=== PATIENT | male | born 1975 | race Caucasian/White ===

== ENCOUNTER 2017-02-02 15:35 | Emergency (ER) | payer MEDICARE ==
[~2017-02-02] VITALS: Ht 190.5 cm; Wt 116.6 kg
[~2017-02-02 15:35] MED LIST: CIPR500T87 PO; CLON0.12 PO; INSU100V5 SQ-INSULIN; LOSA25TA5 PO; OXYC-302 PO
[2017-02-02] MEDS ORDERED: SODIUM CHLORIDE FLUSH 10ML SYR IVF ONE (16:00)
[2017-02-02] MEDS ORDERED: SODIUM CHLORIDE 0.9% 1,000ML IVBOLUS ONE (16:00)
[2017-02-02 16:10] LABS: PH, VENOUS 7.417 pH (7.320-7.420)
[2017-02-02 16:11] LABS: HEMATOCRIT 50.1 % (39.2-51.8); HEMOGLOBIN 16.9 g/dL (13.7-18.0); WHITE BLOOD COUNT 10.1 x10^3/uL (3.4-10)
[2017-02-02 16:23] LABS: ASPARTATE AMINO TRANSFERASE 21 U/L (15-37); BLOOD UREA NITROGEN 11 mg/dL (7-18)
[2017-02-02] MEDS ORDERED: INSULIN REGULAR 100 UNITS/ML, 3ML VIAL IVPush ONE (17:00)
[2017-02-02] MEDS ORDERED: SODIUM CHLORIDE 0.9%, 500ML IVBOLUS ONE (17:00)
[2017-02-02] MEDS ORDERED: INSULIN REGULAR 100 UNITS/ML, 3ML VIAL SQ-INSULIN ONE (17:00)
[2017-02-02] MEDS ORDERED: INSULIN REGULAR 100 UNITS/ML, 3ML VIAL ONE (17:25)
[2017-02-02 17:27] VITALS: BP 142/88
== END 2017-02-02 20:26 | disposition home or self-care (01) ==
LOC: ED 18:20
DX: E11.65 Type 2 diabetes mellitus with hyperglycemia (principal); J20.8 Acute bronchitis due to other specified organisms; B96.89 Other specified bacterial agents as the cause of diseases classified elsewhere; Z79.4 Long term (current) use of insulin
CPT/HCPCS: 36415; 80053; 81003; 82010; 82803; 82962; 85025; 96361; 96372; 96374; 99285; J7030

== ENCOUNTER → 2017-12-27 | Outpatient (CLI) | payer MEDICARE, MEDICAID ==
[~2017-12-27] MED LIST changes: -LOSA25TA5 PO; +LOSA25TA6 PO
== END | disposition home or self-care (01) ==
LOC: CFH 13:14
PROVIDERS: ATTEND Nurse Practitioner
DX: M19.011 Primary osteoarthritis, right shoulder (principal); M75.101 Unspecified rotator cuff tear or rupture of right shoulder, not specified as traumatic

== ENCOUNTER 2018-05-30 05:13 | Day surgery (SDC) | payer MEDICARE, MEDICAID ==
[~2018-05-30] VITALS: Ht 190.5 cm; Wt 114.9 kg
[~2018-05-30 05:13] MED LIST changes: +LOSA25TA25 PO; -LOSA25TA6 PO
[2018-05-30] MEDS ORDERED: LIDOCAINE 1%-EPI 1:100K, 30ML ONE (06:11)
[2018-05-30] MEDS ORDERED: LACTATED RINGERS 1,000 ML IV SCH (06:12)
[2018-05-30 06:18] VITALS: BP 128/92
[2018-05-30] MEDS ORDERED: LOSA100T14 PO (06:18)
[2018-05-30] MEDS ORDERED: ASCO500T8 PO (06:18)
[2018-05-30] MEDS ORDERED: ESCI10TA PO (06:18)
[2018-05-30] MEDS ORDERED: MIDAZOLAM 1 MG/ML, 2ML ONE (06:18)
[2018-05-30] MEDS ORDERED: INSU300I SQ-INSULIN (06:18)
[2018-05-30] MEDS ORDERED: OMEP-110 PO (06:18)
[2018-05-30] MEDS ORDERED: ASPI-496 PO (06:18)
[2018-05-30] MEDS ORDERED: CLON0.5T11 PO (06:18)
[2018-05-30] MEDS ORDERED: INSU100C5 SQ-INSULIN (06:18)
[2018-05-30] MEDS ORDERED: FENTANYL PF 250 MCG/5ML ONE (06:19)
[2018-05-30] MEDS ORDERED: EPINEPHRINE TOPICAL SOLN 1 MG/ML, 30ML ONE (06:28)
[2018-05-30] MEDS ORDERED: MEPERIDINE/PF 25MG/0.5ML IVPush PRN (07:00)
[2018-05-30] MEDS ORDERED: PROMETHAZINE 25 MG/ML, 1ML IV PRN (07:00)
[2018-05-30] MEDS ORDERED: OXYcodone 5 MG/5 ML ORAL.SOL UDC PO PRN (07:00)
[2018-05-30] MEDS ORDERED: PROMETHAZINE 12.5 MG SUPP PR PRN (07:00)
[2018-05-30] MEDS ORDERED: PROMETHAZINE 25 MG/ML, 1ML IM PRN ×2 (07:00)
[2018-05-30] MEDS ORDERED: FENTANYL PF 100 MCG/2ML IV PRN (07:00)
[2018-05-30] MEDS ORDERED: ONDANSETRON 2MG/ML, 2ML IV PRN (07:00)
[2018-05-30] MEDS ORDERED: LABETALOL 5MG/ML, 20ML IV PRN (07:00)
[2018-05-30] MEDS ORDERED: PROMETHAZINE 25 MG SUPP PR PRN (07:00)
[2018-05-30] MEDS ORDERED: MORPHINE SULFATE 4 MG/ML, 1ML IVPush PRN (07:00)
[2018-05-30] MEDS ORDERED: hydrALAzine 20 MG/ML, 1ML IV PRN (07:00)
[2018-05-30] MEDS ORDERED: HYDROmorphone 2 MG/ML, 1ML IVPush PRN (07:00)
[2018-05-30] MEDS ORDERED: ONDANSETRON ODT 8 MG PO PRN (07:00)
[2018-05-30] MEDS ORDERED: ACETAMINOPHEN 325 MG TABLET PO PRN (07:00)
[2018-05-30] MEDS ORDERED: NEOSTIGMINE 1 MG/ML, 10ML ONE (07:02)
[2018-05-30] MEDS ORDERED: ROCURONIUM 10 MG/ML,10ML ONE (07:02)
[2018-05-30] MEDS ORDERED: CEFAZOLIN 1,000 MG ONE (07:02)
[2018-05-30] MEDS ORDERED: PROPOFOL 10 MG/ML, 20ML ONE (07:02)
[2018-05-30] MEDS ORDERED: PHENYLEPHRINE 10 MG/ML ONE (07:02)
[2018-05-30] MEDS ORDERED: GLYCOPYRROLATE 0.2MG/1ML, 5ML ONE (07:02)
[2018-05-30] MEDS ORDERED: CLINDAMYCIN 150 MG/ML, 6ML ONE (07:22)
[2018-05-30] MEDS ORDERED: KETOROLAC 30 MG/1 ML ONE (08:39)
[2018-05-30] MEDS ORDERED: OXYcodone 5 MG/5 ML ORAL.SOL UDC ONE (08:39)
[2018-05-30] MEDS ORDERED: ONDANSETRON 2MG/ML, 2ML ONE (08:39)
[2018-05-30] MEDS ORDERED: KETOROLAC 30 MG/1 ML IVPush ONE (09:00)
== END 2018-05-30 10:50 | disposition home or self-care (01) ==
LOC: OUT 05:13
PROVIDERS: ATTEND Orthopaedic Surgery
DX: S43.431A Superior glenoid labrum lesion of right shoulder, initial encounter (principal); M75.41 Impingement syndrome of right shoulder; M75.21 Bicipital tendinitis, right shoulder; M65.811 Other synovitis and tenosynovitis, right shoulder; I10 Essential (primary) hypertension; E11.9 Type 2 diabetes mellitus without complications; K21.9 Gastro-esophageal reflux disease without esophagitis; Z79.84 Long term (current) use of oral hypoglycemic drugs; X58.XXXA Exposure to other specified factors, initial encounter; Y93.89 Activity, other specified; Y92.89 Other specified places as the place of occurrence of the external cause; Y99.8 Other external cause status
CPT/HCPCS: 23430; 29823; 29826; 29827; 64415; 82962; 93005; C1713; J0690; J1885; J2250; J2370; J2405; J2704; J2710; J3010; J3490; J7120